=== PATIENT | male | born 1955 | race Caucasian/White ===

== ENCOUNTER 2025-04-02 23:02 | Emergency (ER) | payer OTHER, SELFPAY ==
[2025-04-02 23:04] VITALS: BP 150/82
[2025-04-02 23:15] VITALS: BMI 28.4
[2025-04-03] MEDS: TORADOL 60 MG IM (00:30)
[2025-04-03] MEDS: DILAUDID 1 MG IM (00:31)
[2025-04-03 01:23] VITALS: BP 142/87
--- NOTE | 2025-04-03 01:54 | ED.GENMED ---
History of Present Illness
General
Chief Complaint: Trauma Significant Mechanism
Source: patient
Exam Limitations: none
Time Seen by Provider: 04/02/25 23:46
Nursing documentation reviewed up to this point in time: agreed with
History of Present Illness
History of Present Illness:
The patient is a 69-year-old male with history of hyperlipidemia who inadvertently fell down a flight of carpeted stairs at home. He turned right in an attempt to walk down the hallway which is right next to the stairs but unfortunately turned
right a little too soon and subsequently tumbled down a flight of stairs. He denies head injury nor loss of consciousness. He was able to get up and has been ambulatory since fall that occurred around 10:30 PM.
He called a friend to bring him to the ED.
He presents with severe pain left wrist along with local swelling and mild deformity of his left wrist. He denies hand pain, denies weakness nor numbness. Severe left wrist pain with any attempted movement of his wrist.
He is right-hand dominant.
He denies headache, denies chest nor back pain, denies abdominal pain, no nausea or vomiting, no dizziness nor lightheadedness, no palpitations. He does note mild pain left posterior neck. He indicates that there are a few abrasions left anterior
biggs from the impact with the carpet on the stairs.
His only daily medication is a statin. He takes no anticoagulants.
Past History
Past History
ED Past Medical History: Hypercholesterolemia
ED Past Surgical History: Other (MOHS procedure)
Social History
Drug: None
Personal: Single
Living: alone
Employment: Retired
Family History
Family History: Other (Noncontributory)
Phy Exam
Physical Exam
Physical Exam:
TRAUMA EXAM:
VITAL SIGNS: Vital signs reviewed, cooperative. Hemodynamically stable.
DISTRESS: Appears in mild distress related to left wrist pain.
EYES: Pupils reactive, no orbital trauma
NOSE: No deformity or epistaxis
FACE AND SCALP: No scalp or facial trauma, external canals no blood
NECK: Supple, no midline bony tenderness. Mild left paracervical tenderness to palpation. Mild to moderate posterior neck pain with left rotation, right sidebending.
BACK: Back nontender, pelvis stable to compression
RESPIRATORY: No distress, breath sounds normal, no tender chest wall
CARDIAC: No murmur, pulses equal and strong
ABDOMEN: Soft nontender bowel sounds normal
SKIN: Superficial linear abrasion left anterior lower leg, no bleeding, color normal
EXTREMITIES: Significant tenderness about the left wrist with moderate local soft tissue swelling and minimal dinner fork deformity of left wrist. Very is markedly limited range of motion left wrist related to pain. Full range of motion of digits
and distal sensation and strength are intact. Radial pulse is full and equal bilaterally. Rapid capillary refill distally. There is no tenderness to the elbow nor shoulder. All other extremities without tenderness and full range of motion
without difficulty nor pain.
NEUROLOGICAL: Alert, oriented, no motor deficits
PSYCH: Mood affect normal
Course
Orders/Labs/Results
Orders:
Orders
04/02/25 23:23
Wrist, Left 3 Views CR [CR Wrist - Left Min 3 Views] Urgent
Comment:
Reason For Exam: injury, pain
04/03/25 00:14
Ice Pack-Treatment DIRECTED
Location: left wrist
HYDROmorphone [Dilaudid] 1 mg IM NOW STA
Ketorolac [Toradol] 60 mg IM NOW STA
04/03/25 00:15
CT Cervical Spine W/o Iv Contr Urgent
Comment:
Reason For Exam: fall down steps, neck pain
Splints/Slings/Crut- Treatment ONCE
Crutches: No
Sling to: Left Arm
Location: Left
Type of Splint: Sugar Ton
Vital Signs
Initial and Last Documented VS:
Initial Vital Signs
Temp Pulse Resp BP Pulse Ox
97.6 F 66 26 150/82 100
04/02/25 23:04 04/02/25 23:04 04/02/25 23:04 04/02/25 23:04 04/02/25 23:04
Last Documented Vital Signs
Temp Pulse Resp BP Pulse Ox
97.6 F 82 16 142/87 100
04/02/25 23:04 04/03/25 01:23 04/03/25 01:23 04/03/25 01:23 04/03/25 01:23
Procedures
Splint Check
Splint checked by provider?: Yes
Circulation/Movement/Sensation post splint application: brisk cap refill and full sensation
MDM/Problems Addressed
Differential Diagnosis Includes:
Left wrist fracture
Cervical strain, rule out cervical fracture
MDM/Problems Addressed:
Acute left wrist pain after fall down the steps
Left posterior neck pain
Left biggs abrasion
Patient remains hemodynamically stable. No chest or abdominal pain. No evidence of head injury. Takes no anticoagulants.
No neurologic deficits.
Left wrist x-ray shows comminuted impacted distal radius fracture with minimal dorsal angulation.
Will medicate for pain with an IM dose of Dilaudid and Toradol. Apply ice to rest and plan for sugar-tong splint and arm sling. He remains neurovascularly intact at this at this point no indication for urgent fracture reduction.
Although no midline bony cervical tenderness there is some left paracervical tenderness and due to concern for 'distracting injury of left wrist fracture' will check CT cervical spine assess for potential cervical fracture.
Patient will require prompt follow-up with orthopedics for further evaluation and treatment.
*Radiology
Radiology exam reviewed: preliminary read by ED provider (Left wrist x-ray shows comminuted impacted and minimally angulated distal radius fracture.) and radiology read reviewed (Cervical spine CT shows no evidence of fracture)
*Pulse Oximetry
SaO2: 100
Oxygen Mode of Delivery: Room air
Patient hypoxic: no
*Critical Care Note
Total Time (30-74mins, 75-104mins- exclusive of procedures): Not Applicable
Update Note
Update Note:
02:10
Patient is much more comfortable after pain medication and after splint applied.
Splint checked post application. Proper application. Distal sensation and strength as well as capillary refill remain intact.
CT cervical spine is unremarkable.
Will discharge to home with prescription for a few Percocet as well as prescription strength ibuprofen.
Discussed importance of continuing local ice along with prompt follow-up with orthopedics for further treatment of left wrist fracture.
Patient is prescribed Ambien for as needed insomnia. Discussed importance of avoiding Ambien while taking Percocet.
ED Attending Note
-
Portions of this chart may have been created with voice recognition software.� Occasional wrong word or��sound alike� substitutions may have occurred due to the inherent limitations of voice recognition software.
Discharge Plan
Departure
Patient Disposition: Home (Routine Discharge)
Date of Disposition: 04/03/25
Time of Disposition: 02:04
Patient with high blood pressure during this ER visit?: No
Condition: Good
Discharge Problem:
Comminuted left distal radius fracture, Acute cervical myofascial strain, Left anterior biggs abrasion, Fall down steps
Instructions: Splint care - ED (DC), Wrist Fracture
Prescriptions:
New
ibuprofen 800 mg tablet
800 mg PO QIDPRN PRN (Reason: pain, fever) Qty: 30 0RF
oxycodone-acetaminophen [Percocet] 5-325 mg Tablet
1 tab PO Q6HPRN PRN (Reason: pain) Qty: 12 0RF
Referrals:
Raúl Oconnell MD [Active, Orthopedics] - Call in 1-3 days for appt
Sherry Williamson CRNP [Family Provider]
Interventions
Interventions:
*Risk Screen - Suicide Last Done: 04/02/25 23:04
*General Assessment Last Done: 04/02/25 23:14
*Neglect/Abuse Screening Last Done: 04/02/25 23:04
*ED- Fall Risk Assessment Last Done: 04/02/25 23:13
*ED COVID-19 Vaccine History Last Done: 04/02/25 23:13
*ED Influenza Vaccine History Last Done: 04/02/25 23:13
ED-Musculoskeletal Assessment Last Done: 04/02/25 23:11
Discharge Date and Time
Discharge Date/Time: 04/03/25 02:19
Print Language: RWANDAN
[2025-04-03] MEDS: PERCOCET 5/325 1 TABLET PO (02:08)
== END 2025-04-03 02:19 | disposition home or self-care (01) ==
LOC: EMR 23:02
PROVIDERS: EMERGENCY PHYSICIAN Emergency Medicine; FAMILY PHYSICIAN Nurse Practitioner Family
DX: S52.572A Other intraarticular fracture of lower end of left radius, initial encounter for closed fracture (principal); S16.1XXA Strain of muscle, fascia and tendon at neck level, initial encounter; S80.812A Abrasion, left lower leg, initial encounter; W10.9XXA Fall (on) (from) unspecified stairs and steps, initial encounter; E78.00 Pure hypercholesterolemia, unspecified
CPT/HCPCS: 99284; 96372; 72125; 73110

== ENCOUNTER 2025-04-11 06:06 | Day surgery (SDC) | payer OTHER, SELFPAY ==
[2025-04-11] VITALS (8 sets, daily range): BP systolic 115–133; BP diastolic 72–85; BMI 27.3
[2025-04-11] MEDS: CELEBREX 200 MG PO (06:36)
[2025-04-11] MEDS: TYLENOL 1000 MG PO (06:36)
[2025-04-11] MEDS: NORMOSOL-R/PLASMALYTE-A 1000 IV (06:38)
[2025-04-11 07:01] LABS: Hematocrit 44.6 % (39.0-52.0); Hemoglobin 15.3 g/dL (13.0-18.0); Mean Corp Hgb Conc. 34.3 g/dL (33.0-37.0); Mean Corpuscular Volume 94.1 fL (80.0-94.0); Platelet Count 205 10^3/uL (130-400); Red Cell Dist. Width 11.9 % (11.5-14.5)
[2025-04-11 07:18] LABS: ALT (SGPT) 30 U/L (0-50); AST (SGOT) 26 U/L (17-59); Albumin 4.4 g/dl (3.5-5.0); Alkaline Phosphatase 66 U/L (38-126); Blood Urea Nitrogen 17 mg/dl (9-20); Calcium 9.2 mg/dl (8.4-10.2); Carbon Dioxide 23 mmol/L (22-30); Chloride 107 mmol/L (98-107); Estimated Creatinine Clearance 65 ml/min; Glucose 92 mg/dl (70-99); Potassium 4.2 mmol/L (3.5-5.1); Sodium 137 mmol/L (135-145); Total Protein 7.1 g/dl (6.3-8.2); eGFR > 60.00
--- NOTE | 2025-04-11 10:26 | PTCARENOTE ---
Dr. Multani made aware that patient does not have anyone at home with him to help him post op. Patient does have a friend available that is [address] Valero aware. Will monitor patient.
== END 2025-04-11 11:05 | disposition home or self-care (01) ==
LOC: SDS 06:06
PROVIDERS: ATTENDING PHYSICIAN Orthopaedic Surgery
DX: S52.572A Other intraarticular fracture of lower end of left radius, initial encounter for closed fracture (principal); W19.XXXA Unspecified fall, initial encounter
CPT/HCPCS: 25608; 80053; 85027; 93005; C1713